=== PATIENT | female | born 1985 | race Caucasian/White ===

== ENCOUNTER 2018-06-19 15:34 | Emergency (ER) | payer OTHER ==
[2018-06-19 15:59] VITALS: BP 113/72
--- NOTE | 2018-06-19 16:27 | ER Document Report ---
ED General - General Chief Complaint: Chest Pain Stated Complaint: CHEST PAIN Time Seen by Provider: 06/19/18 16:22 Mode of Arrival: Ambulatory Information source: Patient Notes: History of Present Illness Chief Complaint:[cp] [ ] History obtained from [patient] 32 years old female presents today with midsternal chest pain for the last 4 days which is persistent sudden onset, increasing pain on change of position. Not associated with any left arm numbness tingling sensation nausea vomiting palpitation or diaphoresis. Symptoms began:[ today] Onset: [gradual] Timing: [constant, now gone] Quality: ["pain"] Intensity: [moderate] Location: [sternal] Radiation: [none] Migration: [none] Aggravating factors: [none] Relieving factors: [none] Major PE risk factors: [none] Major aortic dissection risk factors: [none] Review of Systems: All other systems negative as reviewed. CONSTITUTIONAL No fever, No chills, No sweats. EYES No eye pain. ENT No URI symptoms, No sore throat, No ear pain. CARDIOVASCULAR + chest pain, No palpitations, No edema. RESPIRATORY No Cough, No SOB, No wheezing. GASTROINTESTINAL No abdominal pain, No nausea, No diarrhea, No vomiting, No GI Bleeding. GENITOURINARY No UTI symptoms. MUSCULOSKELETAL No back pain, No calf swelling, No calf pain. SKIN No Rash. NEUROLOGIC No Headache Physical Exam CONSTITUTIONAL Vital signs reviewed, Patient appears comfortable, Alert and oriented X 3, Normal stature. HEAD Atraumatic, Normocephalic. EYES Eyes are normal to inspection, No discharge from eyes, Extraocular muscles intact, Sclera are normal, Conjunctiva are normal. ENT Ears normal to inspection, Nose examination normal, Posterior pharynx normal, Mouth normal to inspection. NECK Normal ROM, No jugular venous distention, No meningeal signs, no carotid bruit. RESPIRATORY CHEST Chest is sharply tender over the lower sternum and sternocostal region., Breath sounds normal, No respiratory distress. CARDIOVASCULAR RRR, No murmurs, Normal S1 S2, No rub, No gallop. ABDOMEN Abdomen is nontender, No pulsatile masses, No other masses, Bowel sounds normal , No distension, No peritoneal signs, No hernias. BACK There is no CVA Tenderness, There is no tenderness to palpation, Normal inspection. UPPER EXTREMITY Inspection normal, No cyanosis, No clubbing, No edema, 2+ radial pulses. LOWER EXTREMITY Inspection normal, No cyanosis, No clubbing, No edema, No calf tenderness, 2+ femoral pulses. NEURO No focal motor deficits, No focal sensory deficits, Speech normal. SKIN Skin is warm, Skin is dry, Skin is normal color. LYMPHATIC No adenopathy in neck. PSYCHIATRIC Normal affect. TRAVEL OUTSIDE OF THE [place] IN LAST 30 DAYS: No - HPI Notes: Dictated - Related Data Allergies/Adverse Reactions: No Known Allergies Allergy (Verified 06/19/18 16:07) Past Medical History - Social History Smoking Status: Never Smoker Chew tobacco use (# tins/day): No Frequency of alcohol use: None Drug Abuse: None Lives with: Family Family History: Reviewed & Not Pertinent Patient has suicidal ideation: No Patient has homicidal ideation: No Renal/ Medical History: Denies: Hx Peritoneal Dialysis Review of Systems - Review of Systems Notes: Dictated Physical Exam - Vital signs Vitals: Temp Pulse Resp BP Pulse Ox 98.2 F 92 15 113/72 100 06/19/18 15:58 06/19/18 15:58 06/19/18 15:58 06/19/18 15:58 06/19/18 15:58 - Notes Notes: Dictated Course - Vital Signs Vital signs: Temp Pulse Resp BP Pulse Ox 98.2 F 92 16 113/72 100 06/19/18 15:58 06/19/18 15:58 06/19/18 16:08 06/19/18 15:58 06/19/18 15:58 - EKG Interpretation by [place] EKG shows normal: Sinus rhythm - Sinus rhythm at the rate of 67 bpm normal axis no acute ST-T wave changes. Discharge - Discharge Clinical Impression: Chest wall pain Condition: Fair Disposition: HOME, SELF-CARE Instructions: Chest Wall Pain ([facility])
--- NOTE | 2018-06-19 18:58 | EKG REPORT ---
SEVERITY:- NORMAL ECG - SINUS RHYTHM : Confirmed by: Feliberto Dugan MD 19-Jun-2018 18:57:47
== END 2018-06-19 16:31 | disposition home or self-care (01) ==
LOC: ER 15:34
DX: R07.89 Other chest pain (principal)
CPT/HCPCS: 93005; 93010; 99284

== ENCOUNTER 2018-10-09 07:25 | Inpatient (IN) | payer BC ==
[2018-10-09 08:12] LABS: APPEARANCE,URINE CLOUDY; BILIRUBIN,URINE NEGATIVE (NEGATIVE); COLOR,URINE YELLOW; GLUCOSE, URINE NEGATIVE (NEGATIVE); KETONES,URINE NEGATIVE (NEGATIVE); LEUKOCYTE ESTERASE,URINE SMALL (NEGATIVE); NITRITE,URINE NEGATIVE (NEGATIVE); PROTEIN,URINE NEGATIVE (NEGATIVE); URINE SPECIFIC GRAVITY 1.011; UROBILINOGEN,URINE NEGATIVE mg/dL (<2.0)
[2018-10-09 08:39] LABS: URINE AMPHETAMINES SCREEN NEGATIVE; URINE BARBITURATES SCREEN NEGATIVE; URINE BENZODIAZEPINES SCREEN NEGATIVE; URINE COCAINE SCREEN NEGATIVE; URINE MARIJUANA (THC) SCREEN NEGATIVE; URINE METHADONE SCREEN NEGATIVE; URINE PHENCYCLIDINE SCREEN NEGATIVE
[2018-10-09] MEDS: RINGERS SOLUTION,LACTATED 1,000 ML IV PRN ×3 (09:53→12:41)
[2018-10-09] MEDS ORDERED: RINGERS SOLUTION,LACTATED 300 ML IV ONE (10:13)
[2018-10-09] MEDS ORDERED: MISOPROSTOL 0.2 MG TABLET ONE (10:14)
[2018-10-09] MEDS ORDERED: LIDOCAINE 1% INJ-PF (10 MG/ML) 30 ML SDV ONE (10:14)
[2018-10-09] MEDS ORDERED: OXYTOCIN/NORMAL SALINE 20 UNIT/1,000 ML RTUINJ ONE (10:14)
[2018-10-09] MEDS ORDERED: FENTANYL/BUPIVACAINE/NS/PF 300 MCG/150 ML RTUINJ EPI ONE (10:29)
[2018-10-09] MEDS ORDERED: EPHEDRINE SULFATE INJ 50 MG/1 ML AMPULE ONE (10:29)
[2018-10-09] MEDS ORDERED: BUPIVACAINE HCL 0.25 % INJ/PF (2.5 MG/1 ML) 30 ML VIAL ONE (10:30)
[2018-10-09 10:45] LABS: HEMATOCRIT 24.5 % (36.0-47.0); MEAN CORPUSCULAR HEMOGLOBIN 23.5 pg (27.0-33.4); MEAN CORPUSCULAR HGB CONC 32.1 g/dL (32.0-36.0); MEAN CORPUSCULAR VOLUME 73 fl (80-97); RED BLOOD COUNT 3.34 10^6/uL (3.72-5.28); RED CELL DISTRIBUTION WIDTH 19.7 % (11.5-14.0); WHITE BLOOD COUNT 9.1 10^3/uL (4.0-10.5)
--- NOTE | 2018-10-09 10:57 | Admission Physical ---
Datetime Report Generated by CPN: 10/09/2018 10:56 CURRENT ADMISSION Chief Complaint: Uterine Contractions Indication for Induction: Not Applicable Admit Impression : Term, Intrauterine ; Active Labor Admit Impression- Other: Admitted after cervical change with ambulation Admit Plan: Admit to Unit; Initiate Labor Protocol ALLERGIES Medication Allergies: No Medication Allergies: No Known Allergies (06/19/2018) Latex: No Latex Allergies OBSTETRICAL HISTORY EDC: 10/12/2018 00:00 : 2 Para: 0 Gestational Diabetes: No Rh Sensitization: No Incompetent Cervix: No USMAN: No Infertility: No ART Treatment: No Uterine Anomaly: No IUGR: No Hx Previous C/S: No Macrosomia: No Hx Loss/Stillborn: No PIH: No Hx : No Placenta Previa/Abruption: No Depression/PP Depression: No PTL/PROM: No Post Hemorrhage: No Current Procedures: Ultrasound Obstetrical History Comments: 2016- miscarriage at 9 weeks G2- Current SEE RECORDS Alcohol: No Marijuana : No Cocaine: No Other Illicit Drugs: No Cigarettes: Never Smoker. [id number] MEDICAL HISTORY Diabetes: No Blood Transfusion: No Pulmonary Disease (Asthma, TB): No Breast Disease: No Hypertension: No Forging Machine Hand Surgery: No Heart Disease: No Hosp/Surgery: No Autoimmune Disorder: No Anesthetic Complications: No Kidney Disease: No Abnormal Pap Smear: No Neuro/Epilepsy: No Psychiatric Disorders: No Other Medical Diseases: No Hepatitis/Liver Disease: No Significant Family History: No Varicosities/Phlebitis: No Trauma/Violence : No Thyroid Dysfunction: Yes INFECTIOUS HISTORY Gonorrhea: No Genital Herpes: No Chlamydia: No Tuberculosis: No Syphilis: No Hepatitis: No HIV/AIDS Exposure: No Rash or Viral Illness: No HPV: No PHYSICAL EXAM General: Normal HEENT: Normal Neurologic: Normal Thyroid: Deferred Heart: Normal Lungs: Normal Breast: Deferred Back: Normal Abdomen: Normal Genitourinary Exam: Deferred Extremities: Normal DTRs: Normal Pelvic Type: Adequate Physical Exam Comments: Gravid Vital Signs: Reviewed; Within Normal Limits MEMBRANES Membranes: Intact FETUS A EGA: 39.4 Monitoring: External US FHR- Baseline: 125 Variability: Moderate 6-25bpm Accelerations: 15X15 Decelerations: None FHR Category: Category I Presentation: Vertex Admit Comment: I Admitted in active labor with cervical change after ambulation GBS negativ2 Awaiting epidural at this time records available and reviewed PLANS FOR LABOR AND DELIVERY Labor and Delivery: None Pain Management: Epidural Feeding Preference: Formula Benefit of Breast Feed Discussed: Yes Circumcision: N/A INFORMED CONSENT Assignment: Russell Marcelo MD Signature: with User ID: [email or web address] : with User ID: [email or web address] : I personally evaluated and examined the patient in conjunction with the MLP and agree with the assessment, treatment plan and disposition.
[2018-10-09 11:23] LABS: ABSOLUTE LYMPHOCYTES# (MANUAL) 0.7 10^3/uL (0.5-4.7); ABSOLUTE MONOCYTES # (MANUAL) 0.1 10^3/uL (0.1-1.4); ABSOLUTE NEUTROPHILS# (MANUAL) 8.3 10^3/uL (1.7-8.2); BAND NEUTROPHILS % (MANUAL) 1 % (3-5); BASOPHILS % (MANUAL) 0 % (0-2); EOSINOPHILS % (MANUAL) 0 % (0-6); LYMPHOCYTES % (MANUAL) 8 % (13-45); METAMYELOCYTES % (MANUAL) 1 % (0); MONOCYTES % (MANUAL) 1 % (3-13); SEGMENTED NEUTROPHILS % (MAN) 89 % (42-78); TOTAL CELLS COUNTED 100
[2018-10-09 11:24] LABS: POLYCHROMASIA 1+
[2018-10-09 11:25] LABS: ANISOCYTOSIS 2+; HYPOCHROMASIA 1+; OVALOCYTES SLIGHT; POIKILOCYTOSIS SLIGHT; TEAR DROP CELLS SLIGHT
[2018-10-09 11:26] LABS: HEMOGLOBIN 7.9 g/dL (12.0-15.5); PLATELET COMMENT ADEQUATE; PLATELET COUNT 327 10^3/uL (150-450)
--- NOTE | 2018-10-09 14:29 | L&D Progress Notes ---
PROGRESS NOTES Datetime Report Generated by CPN: 10/09/2018 14:29 PROGRESS NOTE Impression: Normal Progression of Labor; Reassuring Heart Rate Procedures: Artificial ROM; Sterile Vag Exam Plan: Continue Present Management Vital Signs : Reviewed; Within Normal Limits Comment: Will alert nursery to presence of mod meconium. FHR tracing reassuring. VAGINAL EXAM Dilatation: 10 Effacement: 100 Station: 0 LAST VAGINAL EXAM-NURSING Dilitation: 10.0 Dilitation: 9.0 Dilitation: 6.0 Dilitation: 4.0 Effacement: 100 Effacement: 90 Effacement: 90 Effacement: 90 Station: 1 Station: 0 Station: 0 Station: -1 MEMBRANES Membranes: Ruptured Membranes: Intact FETUS A FHR - Baseline: 140 Monitoring: External US : 39.4 Presentation: Vertex SIGNATURE SIGNATURE: ,[id number];,[id number] SIGNATURE: [id number] Assignment: Russell Marcelo MD Signature: with User ID: [email or web address] : with User ID: [email or web address] : I personally evaluated and examined the patient in conjunction with the MLP and agree with the assessment, treatment plan and disposition. : I personally evaluated and examined the patient in conjunction with the MLP and agree with the assessment, treatment plan and disposition.
[2018-10-09] MEDS ORDERED: ACETAMINOPHEN WITH CODEINE #3 TABLET PO PRN ×2 (17:32)
[2018-10-09] MEDS ORDERED: DIPH/PERTUSS(ACELL)/TETANUS VAC/PF 0.5 ML SYR (>=10YO) IM PRN (17:32)
[2018-10-09] MEDS ORDERED: ACETAMINOPHEN 650 MG SUPP.RECT PR PRN (17:32)
[2018-10-09] MEDS ORDERED: DIBUCAINE 1% OINTMENT 56 GM TP PRN (17:32)
[2018-10-09] MEDS ORDERED: PROMETHAZINE HCL 25 MG SUPP.RECT PR PRN (17:32)
[2018-10-09] MEDS ORDERED: MEASLES,MUMPS&RUBELLA VACC/PF 0.5 ML VIAL SUBCUT PRN (17:32)
[2018-10-09] MEDS ORDERED: PROMETHAZINE HCL INJ 25 MG/1 ML VIAL IV PRN (17:32)
[2018-10-09] MEDS ORDERED: PROMETHAZINE HCL 25 MG TABLET PO PRN (17:32)
[2018-10-09] MEDS ORDERED: ZOLPIDEM TARTRATE 5 MG TABLET PO PRN (17:32)
[2018-10-09] MEDS ORDERED: OXYTOCIN/NORMAL SALINE 20 UNIT/1,000 ML RTUINJ IV PRN (17:32)
[2018-10-09] MEDS ORDERED: BENZOCAINE/MENTHOL AEROSOL SPRAY 56 ML TOP PRN (17:32)
[2018-10-09] MEDS ORDERED: GLYCERIN/WITCH HAZEL LEAF 1 EACH MED..PAD TP PRN (17:32)
[2018-10-09] MEDS ORDERED: DIPHENHYDRAMINE HCL 25 MG CAPSULE PO PRN (17:32)
[2018-10-09] MEDS ORDERED: NA PHOS,M-B/NA PHOS,DI-BA (ADULT) 133 ML ENEMA PR PRN (17:32)
[2018-10-09] MEDS ORDERED: MAGNESIUM HYDROXIDE SUSP 30 ML UDCUP PO PRN (17:32)
[2018-10-09] MEDS ORDERED: PSEUDOEPHEDRINE HCL 30 MG TABLET PO PRN (17:32)
--- NOTE | 2018-10-09 18:50 | Delivery Summary ---
Del Sum A-C Datetime Report Generated by CPN: 10/09/2018 18:49 DELIVERY PERSONNEL DELIVERY PERSONNEL: [id number] Delivery Doctor:: Russell Marcelo MD Labor and Delivery Nurse:: Kandace Vega RNrail bender Nurse:: Marisa Traore RN Nursery Nurse:: Paloma Genao RN Safety Assistant/MUSIC ENGINEER: Rochelle Gonzalez, ST Additional Personnel: : Yuli Camacho RN MATERNAL INFORMATION Delivery Anesthesia: Epidural Medications After Delivery: Pitocin Bolus-Please Comment; Pitocin Drip 20 Units/1000ml NSS Meds After Delivery Comment: Pitocin 20 units in 1 L NS bolusing per order Maternal Complications: None LABOR SUMMARY EDC: 10/12/2018 00:00 No. Babies in Womb: 1 Attempted: No Labor Anesthesia: Epidural LABOR INFORMATION Reason for Induction: Not Applicable Onset of Labor: 10/09/2018 08:00 Complete Dilatation: 10/09/2018 15:40 Oxytocin: Induction Group B Beta Strep: Negative Antibiotics # of Doses: 0 Antibiotics Time of Last Dose: n/a Name of Antibiotic Given: n/a Steroids Given: None Reason Steroids Not Administered: Not Applicable MEMBRANES Membranes Rupture Method: Artificial Rupture of Membranes: 10/09/2018 14:22 Length of Rupture (hr): 2.88 Amniotic Fluid Color: Moderate Meconium Amniotic Fluid Amount: Small Amniotic Fluid Odor: Normal STAGES OF LABOR Stage 1 hr: 7 Stage 1 min: 40 Stage 2 hr: 1 Stage 2 min: 35 Stage 3 hr: 0 Stage 3 min: 2 Total Time in Labor hr: 9 Total Time in Labor min: 17 VAGINAL DELIVERY Episiotomy: None Laceration #1: Perineal Laceration Extension #1: Second Degree Laceration #2: None Laceration Extension #2: N/A Laceration #3: None Laceration Extension #3: N/A Laceration Repair: Yes Laceration Repair Note: repair with 3-0 chromic in usual fashion Sponge Count Correct: Yes; Vaginal Sweep Performed Sharps Count Correct: Yes CSECTION DELIVERY Primary Indication: N/A Secondary Indication: N/A CSection Incidence: N/A Labor: N/A Elective: N/A CSection Incision: N/A BABY A INFORMATION Infant Delivery Date/Time: 10/09/2018 17:15 Method of Delivery: Vaginal Born in Route : No : N/A Forceps: N/A Vacuum Extraction: N/A Shoulder Dystocia : No PRESENTATION/POSITION BABY A Presentation: Cephalic Cephalic Presentation: Vertex Vertex Position: Left Occipital Anterior Breech Presentation: N/A PLACENTA INFORMATION BABY A Placenta Delivery Time : 10/09/2018 17:17 Placenta Method of Delivery: Spontaneous Placenta Status: Delivered SCORES BABY A Heart Rate 1 min: >100 bpm Resp Effort 1 min: Good Cry Reflex Irritability 1 min: Cough or Sneeze or Pulls Away Muscle Tone 1 min: Active Motion Color 1 min: Body [place], Extremities Blue Resuscitation Effort 1 min: Tactile Stimulation SCORE 1 MIN: 9 Heart Rate 5 min: >100 bpm Resp Effort 5 min: Good Cry Reflex Irritability 5 min: Cough or Sneeze or Pulls Away Muscle Tone 5 min: Active Motion Color 5 min: Body [place], Extremities Blue Resuscitation Effort 5 min: N/A SCORE 5 MIN: 9 INFORMATION BABY A Gestational Age at Delivery: 39.4 Gestational Status: Full Term- 39- 40.6 Weeks Infant Outcome : Liveborn Infant Condition : Stable Sex: Female IDENTIFICATION BABY A Infant Verification Date/Time: 10/09/2018 17:28 ID Band Number: [id number] Mother's Name Verified: Yes RN Verifying Infant: , RN and Karol RN WEIGHT/LENGTH BABY A Infant Birthweight (gm): 3362 Infant Weight (lb): 7 Weight (oz): 7 Length (in): 20.75 Infant Length (cm): 52.71 CORD INFORMATION BABY A No. Cord Vessels: 3 Nuchal Cord : N/A Cord Blood Taken: Yes-For Eval (Mom's Blood Type - or O+) Infant Suction: Mouth; Nose ASSESSMENT BABY A Complications: None Physical Findings at Delivery: Within Normal Limits Infant Respirations: Appears Normal Skin to Skin: Yes Shredded Filler Cigar Maker Machine/ALS Called : No Infant Care By: B. Genao, RN Transferred To: Remains with Mother BABY B INFORMATION : N/A SIGNATURES Signature: with User ID: [email or web address] : I personally evaluated and examined the patient in conjunction with the MLP and agree with the assessment, treatment plan and disposition.
[2018-10-09] MEDS ORDERED: DOCUSATE SODIUM 100 MG CAPSULE ONE (19:02)
[2018-10-09] MEDS ORDERED: FERROUS SULFATE 325 MG TABLET PO ONE (19:02)
[2018-10-09] MEDS: FERROUS SULFATE 325 MG TABLET PO SCH (19:05)
[2018-10-09] MEDS: DOCUSATE SODIUM 100 MG CAPSULE PO SCH (19:05)
[2018-10-09] MEDS ORDERED: ACETAMINOPHEN 325 MG TABLET PO PRN (20:01)
[2018-10-09] MEDS ORDERED: ACETAMINOPHEN 325 MG TABLET ONE (20:19)
[2018-10-09] MEDS: FAMOTIDINE 20 MG TABLET PO SCH (21:45)
[2018-10-09] MEDS: AMPICILLIN SOD/SULBACTAM 3 GM VIAL IV SCH (21:45)
[2018-10-09] MEDS: IBUPROFEN 800 MG TABLET PO SCH (21:45)
[2018-10-10] MEDS: IBUPROFEN 800 MG TABLET PO SCH ×3 (05:14→23:00)
[2018-10-10] MEDS: LEVOTHYROXINE SODIUM 0.15 MG TABLET PO SCH (05:23)
[2018-10-10 06:58] LABS: HEMATOCRIT 23.1 % (36.0-47.0); MEAN CORPUSCULAR HGB CONC 32.3 g/dL (32.0-36.0); MEAN CORPUSCULAR VOLUME 71 fl (80-97); PLATELET COUNT 299 10^3/uL (150-450); RED BLOOD COUNT 3.23 10^6/uL (3.72-5.28); RED CELL DISTRIBUTION WIDTH 19.5 % (11.5-14.0); WHITE BLOOD COUNT 15.1 10^3/uL (4.0-10.5)
[2018-10-10 07:12] LABS: HEMOGLOBIN 7.4 g/dL (12.0-15.5)
[2018-10-10] MEDS: AMPICILLIN SOD/SULBACTAM 3 GM VIAL IV SCH (09:41)
[2018-10-10] MEDS: SENNOSIDES/DOCUSATE 8.6-50 MG 1 EACH TABLET PO SCH (09:42)
[2018-10-10] MEDS: FAMOTIDINE 20 MG TABLET PO SCH ×2 (09:42→23:00)
[2018-10-10] MEDS: PRENATAL VITAMIN W DHA CAPSULE PO SCH (09:42)
[2018-10-10] MEDS: FERROUS SULFATE 325 MG TABLET PO SCH ×2 (09:42→18:37)
[2018-10-10] MEDS: DOCUSATE SODIUM 100 MG CAPSULE PO SCH ×2 (09:42→18:37)
[2018-10-10] MEDS ORDERED: LEVOTHYROXINE SODIUM 0.15 MG TABLET PO SCH (10:00)
--- NOTE | 2018-10-10 15:51 | PDOC PROGRESS REPORT ---
Subjective-OB Progress Note for:: 10/10/18 Subjective: reports bleeding slowing, pain controlled with current meds, denies needs Physical Exam (OB) Vital Signs: Temp Pulse Resp BP Pulse Ox 98.3 F 93 18 104/62 97 10/10/18 08:48 10/10/18 08:48 10/10/18 08:48 10/10/18 08:48 10/10/18 08:48 Intake & Output 10/09/18 10/10/18 10/11/18 06:59 06:59 06:59 Intake Total 171 1000 Balance 171 1000 Weight 78.5 kg - Abdomen Description: Soft Hernia Present: No Fundal Description: Firm, Midline Fundal Height: u/u - u/2 - Abdominal Distension: No distension Tenderness: Nontender - Extremities Lower extremities: Wander's sign - neg Ankle: Normal, Nontender Objective-Diagnostic Laboratory: 10/10/18 06:29 10/10/18 06:29 WBC 15.1 H RBC 3.23 L Hgb 7.4 L Hct 23.1 L MCV 71 L MCH 23.0 L MCHC 32.3 RDW 19.5 H Plt Count 299 Assessment and Plan(PN) - Assessment and Plan (1) Normal vaginal delivery Is this a current diagnosis for this admission?: Yes (2) Obstetrical laceration, second degree Is this a current diagnosis for this admission?: Yes - Time Spent with Patient Time with patient: Less than 15 minutes Medications reviewed and adjusted accordingly: Yes - Disposition Anticipated Discharge: Home Within: within 24 hours
[2018-10-11] MEDS: IBUPROFEN 800 MG TABLET PO SCH (05:34)
[2018-10-11] MEDS: LEVOTHYROXINE SODIUM 0.15 MG TABLET PO SCH (05:41)
[2018-10-11 07:56] LABS: ABSOLUTE BASOPHILS # (AUTO) 0.1 10^3/uL (0.0-0.2); ABSOLUTE EOSINOPHILS # (AUTO) 0.1 10^3/uL (0.0-0.6); ABSOLUTE LYMPHOCYTES (AUTO) 1.8 10^3/uL (0.5-4.7); ABSOLUTE MONOCYTES (AUTO) 1.5 10^3/uL (0.1-1.4); ABSOLUTE NEUT (AUTO) 14.5 10^3/uL (1.7-8.2); BASOPHILS % (AUTO) 0.4 % (0-2); EOSINOPHILS % (AUTO) 0.7 % (0-6); HEMATOCRIT 21.3 % (36.0-47.0); LYMPHOCYTES % (AUTO) 10.2 % (13-45); MEAN CORPUSCULAR HEMOGLOBIN 23.1 pg (27.0-33.4); MEAN CORPUSCULAR HGB CONC 32.2 g/dL (32.0-36.0); MEAN CORPUSCULAR VOLUME 72 fl (80-97); MONOCYTES % (AUTO) 8.4 % (3-13); PLATELET COUNT 311 10^3/uL (150-450); RED BLOOD COUNT 2.97 10^6/uL (3.72-5.28); RED CELL DISTRIBUTION WIDTH 19.5 % (11.5-14.0); SEGMENTED NEUTROPHILS % (AUTO) 80.3 % (42-78); TOTAL CELLS COUNTED % (AUTO) 100 %
[2018-10-11 08:45] VITALS: BP 104/70
[2018-10-11 08:54] LABS: HEMOGLOBIN 6.9 g/dL (12.0-15.5)
[2018-10-11] MEDS: FERROUS SULFATE 325 MG TABLET PO SCH (10:26)
[2018-10-11] MEDS: SENNOSIDES/DOCUSATE 8.6-50 MG 1 EACH TABLET PO SCH (10:27)
[2018-10-11] MEDS: DOCUSATE SODIUM 100 MG CAPSULE PO SCH (10:28)
[2018-10-11] MEDS: PRENATAL VITAMIN W DHA CAPSULE PO SCH (10:28)
[2018-10-11] MEDS: FAMOTIDINE 20 MG TABLET PO SCH (10:28)
--- NOTE | 2018-10-11 10:43 | PDOC DISCHARGE SUMMARY ---
Final Diagnosis Discharge Date: 10/11/18 - Final Diagnosis (1) Normal vaginal delivery Is this a current diagnosis for this admission?: Yes (2) Obstetrical laceration, second degree Is this a current diagnosis for this admission?: Yes Discharge Data - Discharge Medication Home Medications: Levothyroxine Sodium [Unithroid] 300 mcg PO DAILY 10/09/18 Reason(s) for Admission: Onset of Labor Procedures: NST Intrapartum Procedure(s): Spontaneous Vaginal Delivery Complication(s): Laceration-Perineal Laceration-Degree: 2nd - Diagnosis Test Laboratory: Temp Pulse Resp BP Pulse Ox 97.9 F 87 15 104/70 95 10/11/18 07:50 10/11/18 07:50 10/11/18 07:50 10/11/18 07:50 10/11/18 07:50 10/09/18 10/09/18 10/10/18 07:35 10:30 06:29 RBC 3.34 L 3.23 L Hgb 7.9 L 7.4 L Hct 24.5 L 23.1 L Urine Opiates Screen NEGATIVE 10/11/18 07:18 RBC 2.97 L Hgb 6.9 L Hct 21.3 L Urine Opiates Screen - Discharge information/Instructions Discharge Activity: Balance Activity w/Rest, Pelvic Rest Discharge Diet: Regular Disposition: HOME, SELF-CARE Follow up with: [facility] in: 4, Weeks
== END 2018-10-11 12:22 | disposition home or self-care (01) | DRG 807 ==
LOC: LC 07:25 → LR 09:28 → 2S 19:45
PROVIDERS: ADMIT Obstetrics & Gynecology; ATTEND Obstetrics & Gynecology
PROC: 10E0XZZ Delivery of Products of Conception, External Approach (ICD-10-PCS; principal; 2018-10-09)
PROC: 0KQM0ZZ Repair Perineum Muscle, Open Approach (ICD-10-PCS; 2018-10-09)
PROC: 3E033VJ Introduction of Other Hormone into Peripheral Vein, Percutaneous Approach (ICD-10-PCS; 2018-10-09)
PROC: 10907ZC Drainage of Amniotic Fluid, Therapeutic from Products of Conception, Via Natural or Artificial Opening (ICD-10-PCS; 2018-10-09)
PROC: 4A1HXCZ Monitoring of Products of Conception, Cardiac Rate, External Approach (ICD-10-PCS; 2018-10-09)
DX: O70.1 Second degree perineal laceration during delivery (principal); Z37.0 Single live birth; Z3A.39 39 weeks gestation of pregnancy
CPT/HCPCS: 36415; 80307; 81005; 85025; 85027; 86592; 86850; 86900; 86901; J0295; J2590; J3010; J3490